=== PATIENT | male | born 1985 | race Caucasian/White ===

== ENCOUNTER 2022-02-06 19:04 | Emergency (ER) | payer OTHER ==
[~2022-02-06] VITALS: Ht 182.9 cm; Wt 95.3 kg
[2022-02-06 19:10] VITALS: BP_SYST 146
--- NOTE | 2022-02-06 19:10 | NUR ---
Patient triaged and placed in waiting room. VSS and patient appears in no acute distress at this time. Accompanied by fam member, awaiting available bed, and MD notified of need for MSE.
--- NOTE | 2022-02-06 19:40 | NUR ---
PER ADMITTING PT LEFT ACCOMPANIED BY HIS .
== END 2022-02-06 19:40 | disposition left against medical advice (07) ==
LOC: SED 19:04
DX: Z53.21 Procedure and treatment not carried out due to patient leaving prior to being seen by health care provider (principal)